=== PATIENT | male | born 1950 | race Caucasian/White ===

== ENCOUNTER 2019-09-11 14:52 | Emergency (ER) | payer MEDICARE, OTHER ==
--- OUTSIDE RECORDS SUMMARY | 2019-09-11 14:58 | XMS REPORT | Continuity of Care Document ---
:1950 External Reference #:[id number] Author Name Drew Tipton M.D. (transmitted by agent of provider Lina Barroso) Address [address] [place] [address] Care Team Providers Name Role Phone Hemant Elias III, MD - Internal Care Team Information [employer] Medicine Drew Tipton MD - Cardiovascular Care Team Information [employer] Operator [phone] Disease Problems Active Problems Provider Date Essential hypertension Hemant Elias M.D. Onset: 09/04/2015 Coronary arteriosclerosis Hemant Elias M.D. Onset: 10/25/2011 Benign essential hypertension Hemant Elias M.D. Onset: 10/25/2011 Social History Type Date Description Comments Sex Unknown Tobacco Use Start: Unknown Former Cigarette Smoker End: Unknown Smoking Status Reviewed: 08/02/19 Former Cigarette Smoker ETOH Use Denies alcohol use Tobacco Use Start: Unknown Patient is a former Quit Aug 2011; 11/28 End: Unknown smoker ppd, began early 20s. Smokes marijuana 3xweek Quit 07/29/17 Recreational Drug Use Formerly used Marijuana Restarted - smokes sporadically 3xweek Exercise Type/Frequency Exercises regularly 5-6 days/week : 1 hr each Allergies, Adverse Reactions, Alerts Active Allergies Reaction Severity Comments Date NKDA 03/17/2015 Inactive Allergies Bee Sting swelling 10/25/2011 Medications Active Medications SIG Qnty Indications Ordering Date Provider Toprol XL 1 by mouth every 90tabs Drew Yusuf 08/28/2017 50mg Tablets ER in the morning Latonia Tipton 24HR Amlodipine Besylate 1 by mouth every 90tabs Drew Yusuf 10mg day Latonia Tipton Tablets Nitrostat one sl q5min up 50tabs Hemant E. 0.4mg Tablets to 3 doses as Latonia Elias Sub needed Simvastatin 1 by mouth every 90tabs Drew Yusuf 20mg Tablets day Latonia Tipton Hydrocortisone Acetate insert rectally 24units Hemant E. twice daily as Latonia Elias 25mg Suppository needed Aspirin 1 po daily Unknown 325mg Tablets Hydrocortisone apply to 30units Hemant E. 2.5% Cream affected area Latonia Elias twice a day History Medications Amoxicillin/Clavulanate one tablet by 20tabs . Silvia 04/25/2019 - Potassium mouth twice Varn, N.P. 05/05/2019 875-125mg Tablets daily for 10 days Fluticasone Propionate 2 sprays each 16units Evelin Silvia 04/25/2019 - 50mcg/Act nostril daily Varn, N.P. 05/09/2019 Suspension as needed Medications Administered in Office Medication SIG Qnty Indications Ordering Provider Date Technetium TC 99M Drew Mcclure M.D. 05/14/2014 Per Unit Dose Up To 40 Millicuries Injection Immunizations CPT Code Status Date Vaccine Reaction Lot # [id number] Given 09/17/2018 Fluzone High Dose 68552 Given 10/17/2017 Influenza Virus Vaccine, [id number] Quadrivalent, Split, Preservative Free 74494 Given 09/22/2016 Influ Virus Vaccine, no immedate reaction [id number] Quadrivalent, Split Virus, noted ... [place] [address] Given 03/17/2016 Pneumococcal Conjugate [id number] Vaccine 13 Valent For Intramuscular Use 59790 Given 09/04/2015 Influenza Virus Vaccine, [id number] Quadrivalent, Split, Preservative Free 90849 Given 08/19/2014 Tdap - Tetanus/Diptheria/Acellular Pertussis 81129 Given 08/19/2014 Tdap - [id number] Tetanus/Diptheria/Acellular Pertussis 47471 Given 08/19/2014 Influenza Virus Vaccine, Quadrivalent, Split, Preservative Free 03039 Given 08/19/2014 Influenza Virus Vaccine, [id number] Quadrivalent, Split, Preservative Free 05951 Given 05/05/2014 Zoster (Zostavax) 78155 Given 09/13/2013 Flu Vaccine Split Virus [id number] Preservative Free For Indiv 3Yr Older Q2038 Given 08/24/2012 Fluzone Vaccine [id number] 37449 Given Unknown Tdap - Tetanus/Diptheria/Acellular Pertussis Vital Signs Date Vital Result Comment 08/02/2019 8:24am Height 65 inches 5'5" Weight 134.00 lb with shoes Heart Rate 77 /min BP Systolic Sitting 130 mmHg Rue BP Diastolic Sitting 80 mmHg Rue BP Systolic Standing 110 mmHg Rue BP Diastolic Standing 76 mmHg Rue BMI (Body Mass Index) 22.3 kg/m2 Ejection Fraction 66% Echo 09/30/11 04/25/2019 10:51am Height 65 inches 5'5" Weight 135.50 lb Heart Rate 65 /min BP Systolic 151 mmHg BP Diastolic 93 mmHg Body Temperature 97.8 F O2 % BldC Oximetry 98 % BMI (Body Mass Index) 22.5 kg/m2 Results Description No Information Available Procedures Date Code Description Status 08/02/2019 41047 EKG Tracing & Interpretation Completed 11/29/2017 58212078 Colonoscopy Completed 09/05/2007 25265581 Colonoscopy Completed Medical Devices Description No Information Available Encounters Type Date Location Provider Dx Diagnosis Office Visit 04/25/2019 [facility] Internal Silvia Flaherty, J01.90 Acute sinusitis , 10:40a Medicine - Kusum N.P. unspecified Office Visit 03/22/2019 [facility] Internal Hemant Waters06.9 Acute upper 10:40a Medicine - Kusum Elias M.D. respiratory infection, unspecified Assessments Date Code Description Provider 08/02/2019 I25.10 Coronary atherosclerosis Drew Tipton M.D. 04/25/2019 J01.90 Acute sinusitis, unspecified Silvia Flaherty, N.P. 03/22/2019 J06.9 Acute upper respiratory infection, Hemant Elias M.D. unspecified Plan of Treatment 08/02/2019 - Drew Tipton M.D.I25.10 Coronary atherosclerosisFollow up:1 year Functional Status Description No Information Available Mental Status Description No Information Available Referrals Description No Information Available
[2019-09-11 15:59] VITALS: BP 148/90
--- NOTE | 2019-09-11 16:02 | UC ---
Throat Pain/Nasal Mason HPI - HPI Summary HPI Summary: 69-year-old male comes in with a chief complaint of runny nose sore throat cough chest congestion for 12 days. Initially was more of a runny nose cough and chest congestion needed feel short of breath with the chest congestion. Also sinuses felt very clogged up with the sinus congestion. He did take over- the-counter medications with some relief. The rhinorrhea and sputum has turned yellow and green in the last few days. Overall he feels like his chest is much improved and he is having only minimal sputum production. No further shortness of breath. He does complain of postnasal drip and a sore throat that's developed over the last couple of days. He also tells me that he's been having white spots on the back of his throat for months and is not sure what they are. - History of Current Complaint Chief Complaint: UCGeneralIllness Stated Complaint: SORE THROAT Time Seen by Provider: 09/11/19 15:22 Pain Intensity: 2 - Allergies/Home Medications Allergies/Adverse Reactions: Allergies Allergy/AdvReac Type Severity Reaction Status Date / Time No Known Allergies Allergy Verified 09/11/19 15:16 PMH/Surg Hx/FS Hx/Imm Hx Previously Healthy: Yes Endocrine History: Dyslipidemia Cardiovascular History: Hypertension - Surgical History Surgical History: Yes Surgery Procedure, Year, and Place: cardiac stent placed 2010 - Family History Known Family History: Positive: Non-Contributory - Social History Alcohol Use: None Substance Use Type: None Smoking Status (MU): Never Smoked Tobacco Review of Systems All Other Systems Reviewed And Are Negative: Yes Constitutional: Positive: Other - SEE HPI Skin: Positive: Negative Eyes: Positive: Negative ENT: Positive: Sore Throat, Nasal Discharge, Sinus Congestion Respiratory: Positive: Shortness Of Breath, Cough, Other - SEE HPI Cardiovascular: Positive: Negative Gastrointestinal: Positive: Negative Motor: Positive: Negative Neurovascular: Positive: Negative Musculoskeletal: Positive: Negative Neurological: Positive: Negative Psychological: Positive: Negative Is Patient Immunocompromised?: No Physical Exam Triage Information Reviewed: Yes Appearance: No Pain Distress, Well-Nourished, Ill-Appearing - MILD Vital Signs: Initial Vital Signs Temp 98.2 F 09/11/19 15:12 Pulse 72 09/11/19 15:12 Resp 16 09/11/19 15:12 BP 181/96 09/11/19 15:12 Pulse Ox 99 09/11/19 15:12 Vital Signs Reviewed: Yes Eye Exam: Normal Eyes: Positive: Conjunctiva Clear ENT: Positive: Pharyngeal erythema, Nasal congestion, Nasal drainage, TMs normal , Other - Posterior pharynx has erythema. No tonsillar swelling. There are some counter pocket sewer areas on the left side of the posterior pharynx mucosa. Neck: Positive: Supple Respiratory: Positive: Lungs clear, Normal breath sounds, No respiratory distress Cardiovascular: Positive: RRR Musculoskeletal: Positive: Strength Intact, ROM Intact Neurological: Positive: Alert Psychological: Positive: Age Appropriate Behavior Skin Exam: Normal Throat Pain/Nasal Course/Dx - Course Course Of Treatment: Patient's had upper respiratory tract infection symptoms for greater than 10 days and persistent sinusitis with postnasal drip we'll treat with Augmentin. Patient follow-up with ENT for the white spots on the back of his pharynx. Reevaluated sooner if worse or questions or concerns. - Differential Dx/Diagnosis Provider Diagnosis: Sinusitis, Pharyngitis, Pharyngeal disorder Discharge ED - Sign-Out/Discharge Documenting (check all that apply): Patient Departure All imaging exams completed and their final reports reviewed: No Studies - Discharge Plan Condition: Stable Disposition: HOME Prescriptions: Amoxicillin/Clavulanate TAB* [Augmentin TAB 875*] 875 mg PO BID #20 tab Patient Education Materials: Pharyngitis (ED), Sinusitis (ED) Referrals: Hemant Elias MD [Primary Care Provider] - Matheus Cortez MD [Medical Doctor] - Additional Instructions: FOLLOW UP WITH ENT. GET RECHECKED SOONER IF YOUR CONDITION WORSENS OR ANY QUESTIONS OR CONCERNS. - Billing Disposition and Condition Condition: STABLE Disposition: Home
== END 2019-09-11 16:00 | disposition home or self-care (01) ==
LOC: UCEAST 14:52
DX: J02.9 Acute pharyngitis, unspecified (principal); J32.9 Chronic sinusitis, unspecified; J39.2 Other diseases of pharynx; I10 Essential (primary) hypertension
CPT/HCPCS: 87651; 99212; G0463